=== PATIENT | female | born 1980 ===

== ENCOUNTER 2018-03-10 21:25 | Emergency (ER) | payer OTHER ==
[2018-03-10 21:31] VITALS: BMI 26.4
--- NOTE | 2018-03-10 23:48 | PDOC ---
History of Present Illness - General Chief Complaint: Abscess Boil Stated Complaint: VAGINAL DISCOMFORT History Source: Patient Exam Limitations: No Limitations - History of Present Illness Initial Comments: 03/10/18 23:42 37 yo F with no pmhx here with 2 weeks of abscess left labia. has been having pain. states no new sexual partners. only having sex with . no dysuria. no f/c now having worsening pain. no f/c no other complaints. no h/o prior bartholins cyst. Past History - Past Medical History Allergies/Adverse Reactions: Allergies Allergy/AdvReac Type Severity Reaction Status Date / Time No Known Allergies Allergy Verified 03/10/18 21:31 Home Medications: Ambulatory Orders Sulfamethoxazole/Trimethoprim [Bactrim Ds -] 1 tab PO BID #14 tablet 03/10/18 COPD: No - Suicide/Smoking/Psychosocial Hx Smoking History: Never smoked Review of Systems - Review of Systems Constitutional: No: Chills, Diaphoresis, Fever Respiratory: No: Cough, Orthopnea Cardiac (ROS): No: Chest Pain, Edema, Irregular Heart Rate ABD/GI: No: Abdominal Distended : Yes: Other (labial pain) Musculoskeletal: No: Back Pain, Gout, Joint Pain Integumentary: No: Bruising, Change in Color Neurological: No: Headache, Numbness All Other Systems: Reviewed and Negative *Physical Exam - Vital Signs Last Vital Signs Temp Pulse Resp BP Pulse Ox 98 F 73 18 112/71 100 03/10/18 21:28 03/10/18 21:28 03/10/18 21:28 03/10/18 21:28 03/10/18 21:28 - Physical Exam Comments: 03/10/18 23:46 awake alert lungs clear bilaterally heart rrr no mrg abd soft nt nd. exam left labia minora with small cyst like lesion. draining. expressable pus and blood. small 0.5 x 4 mm. lesion. no bartholins. Medical Decision Making - Medical Decision Making 03/10/18 23:48 pt with labia minora abscess, small . already draining. expressable pus. recommend sitz soaks and bactrim. 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 ucg pening. *DC/Admit/Observation/Transfer Diagnosis at time of Disposition: Labial cyst - Discharge Dispostion Disposition: HOME Condition at time of disposition: Improved Decision to Admit order: No - Prescriptions Prescriptions: Sulfamethoxazole/Trimethoprim [Bactrim Ds -] 1 tab PO BID #14 tablet - Referrals Referrals: Dusty Machado MD [Primary Care Provider] - - Patient Instructions Printed Discharge Instructions: Vulvar Abscess Additional Instructions: you should take bactrim twice daily. 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 return for any problems or concerns. soak in warm water twice daily to help the abscess continue to drain. return for recurrent swelling or any worsening symptoms - Post Discharge Activity
[2018-03-10] MEDS ORDERED: IBUPROFEN 600 MG TABLET (FP) PO ONE (23:53)
[2018-03-11] MEDS ORDERED: IBUPROFEN 600 MG TABLET (FP) PO ONE (00:32)
[2018-03-11] MEDS ORDERED: SULFAMETHOXAZOLE/TRIMETHOPRIM 800MG/160MG D.S. TABLET PO ONE (00:54)
[2018-03-11] MEDS ORDERED: SULFAMETHOXAZOLE/TRIMETHOPRIM 800MG/160MG D.S. TABLET ONE (01:07)
[2018-03-11 01:19] VITALS: BP 124/71; PULSE 68; TEMP 98.2
== END 2018-03-11 01:19 | disposition home or self-care (01) ==
LOC: JER 21:25
DX: N90.7 Vulvar cyst (principal)
CPT/HCPCS: 84703; 99281-25